=== PATIENT | female | born 1955 | race Caucasian/White ===

== ENCOUNTER 2017-07-22 18:30 | Inpatient (IN) | payer BC, OTHER ==
[~2017-07-22] VITALS: Ht 170.2 cm; Wt 123.8 kg
[~2017-07-22 18:30] MED LIST: ASPIRIN81 M2 PO; BENICAR20 MG PO; CLINDAMYCIN HC300 MG PO; CYMBALTA60 MG PO; FENOFIBRATE160 M1 PO; HUMULIN N100 UNIT/1 SC; LANTUS (UNITS)1 UNIT IV; METFORMIN HCL1000 MG PO; METFORMIN HCL500 MG PO; NOVOLIN N100 UNITS/ SC; NOVOLIN,HU100 UNITS1 SC; SIMVASTATIN40 M1 PO; SIMVASTATIN40 MG PO
[2017-07-22 20:03] LABS: BASOPHIL (%) 0.3 % (0-1); BASOPHIL COUNT 0.1 K/uL (0-0.1); EOSINOPHIL (%) 0 % (0-5); HEMATOCRIT 37.6 % (36.0-46.0); HEMOGLOBIN 12.1 G/DL (11.9-15.5); IMMATURE GRANULOCYTE (%) 2.2 % (0.0-0.7); LYMPHOCYTE (%) 2.7 % (15-42); LYMPHOCYTE COUNT 0.4 K/uL (1.0-2.8); MCH 27.9 PG (29.0-34.0); MCHC 32.2 G/DL (30.0-36.0); MCV 86.8 FL (83-99); MONOCYTE (%) 6.4 % (3-12); NEUTROPHIL (%) 88.4 % (45-76); NEUTROPHIL COUNT 13.7 K/uL (1.8-6.4); PLATELET COUNT 173 K/uL (156-360); RBC DIS.WIDTH-CV 13.2 % (11.8-14.6); RBC DIS.WIDTH-SD 42.1 % (39-53); RED BLOOD COUNT 4.33 M/uL (3.80-5.20); WHITE BLOOD COUNT 15.6 K/uL (4.1-10.2)
[2017-07-22 20:07] LABS: ALBUMIN 3.7 g/dL (3.2-4.8); CHLORIDE 92 mEq/L (99-109); POTASSIUM 4.7 mEq/L (3.7-5.4)
[2017-07-22 20:08] LABS: SODIUM 126 mEq/L (136-147)
[2017-07-22 20:09] LABS: CARBON DIOXIDE (BICARBONATE) 20.9 MEQ/L (20-31); TOTAL PROTEIN 7.6 g/dL (6.4-8.3)
[2017-07-22 20:13] LABS: ALKALINE PHOSPHATASE 78 IU/L (3-129)
[2017-07-22 20:14] LABS: AST (GOT) 30 IU/L (2-34)
[2017-07-22 20:16] LABS: ALT (GPT) 30 IU/L (3-49)
[2017-07-22 20:18] LABS: TROP-I INTERPRETATION NEGATIVE; TROPONIN-I 0.03 ng/mL (0.0-0.30)
[2017-07-22 20:19] LABS: CREATININE 3.3 mg/dL (0.6-1.3); GFR ESTIMATE (CALCULATED) 15 mL/min/; GLUCOSE 527 mg/dL (70-99); UREA NITROGEN (BUN) 60 mg/dL (9-23)
[2017-07-22] MEDS ORDERED: NOVOLIN N100 UNITS/ SC (22:13)
[2017-07-22] MEDS ORDERED: NOVOLOG PE100 UNITS/ SC (22:14)
[2017-07-22 22:15] LABS: CHLORIDE 96 mEq/L (99-109); POTASSIUM 4.4 mEq/L (3.7-5.4); SODIUM 127 mEq/L (136-147)
[2017-07-22] MEDS ORDERED: VITAMIN D31000 UNI2 PO (22:15)
[2017-07-22 22:16] LABS: GLUCOSE 362 mg/dL (70-99)
[2017-07-22 22:20] LABS: CREATININE 3.1 mg/dL (0.6-1.3); GFR ESTIMATE (CALCULATED) 16 mL/min/
[2017-07-22 22:21] LABS: UREA NITROGEN (BUN) 62 mg/dL (9-23)
[2017-07-23 00:53] VITALS: BP 136/63
[2017-07-23 04:21] VITALS: BP 138/82
[2017-07-23 06:55] LABS: APPEARANCE CLOUDY ((CLEAR)); BILIRUBIN NEGATIVE; BLOOD MODERATE; COLOR AMBER ((YELLOW)); GLUCOSE (STRIP) 150; KETONES NEGATIVE; LEUKOCYTES MODERATE; NITRITE NEGATIVE; PROTEIN (STRIP) 100; SPECIFIC GRAVITY 1.013 (1.000-1.030); UROBILINOGEN 0.2 MG/DL (0.2-1.0)
[2017-07-23 07:13] LABS: EPITHELIAL CELLS 1+ /HPF; WHITE BLOOD CELLS TNTC /HPF (0-5)
[2017-07-23 07:14] LABS: BACTERIA 1+ /HPF; MUCUS 1+ /LPF
[2017-07-23 07:24] LABS: BASOPHIL (%) 0.2 % (0-1); EOSINOPHIL (%) 0.2 % (0-5); HEMATOCRIT 33.5 % (36.0-46.0); HEMOGLOBIN 11.2 G/DL (11.9-15.5); IMMATURE GRANULOCYTE (%) 0.6 % (0.0-0.7); LYMPHOCYTE (%) 4.1 % (15-42); LYMPHOCYTE COUNT 0.5 K/uL (1.0-2.8); MCH 29.5 PG (29.0-34.0); MCHC 33.4 G/DL (30.0-36.0); MCV 88.2 FL (83-99); MONOCYTE (%) 8.8 % (3-12); MONOCYTE COUNT 1.1 K/uL (0-0.8); NEUTROPHIL (%) 86.1 % (45-76); RBC DIS.WIDTH-CV 13.7 % (11.8-14.6); WHITE BLOOD COUNT 12.8 K/uL (4.1-10.2)
[2017-07-23 07:27] VITALS: BP 144/65
[2017-07-23 07:54] LABS: CHLORIDE 94 MEQ/L (99-109); CREATININE 2.8 MG/DL (0.6-1.3); GFR ESTIMATE (CALCULATED) 18 mL/min/; GLUCOSE 372 mg/dL (70-99); POTASSIUM 4.7 MEQ/L (3.7-5.4); SODIUM 124 MEQ/L (136-147); UREA NITROGEN (BUN) 64 mg/dL (9-23)
[2017-07-23 08:30] LABS: PLATELET CLUMPS PRESENT - PLATELET COUNT APPEARS ADQ.; PLATELET COUNT 190 K/uL (156-360)
[2017-07-23 14:58] LABS: CHLORIDE 97 MEQ/L (99-109); CREATININE 2.5 MG/DL (0.6-1.3); GFR ESTIMATE (CALCULATED) 21 mL/min/; GLUCOSE 364 mg/dL (70-99); POTASSIUM 3.9 MEQ/L (3.7-5.4); SODIUM 125 MEQ/L (136-147); UREA NITROGEN (BUN) 61 mg/dL (9-23)
[2017-07-23 20:25] VITALS: BP 129/58
[2017-07-23 23:15] VITALS: BP 98/89
[2017-07-24 06:06] LABS: BASOPHIL (%) 0.2 % (0-1); EOSINOPHIL (%) 0.4 % (0-5); HEMATOCRIT 31.5 % (36.0-46.0); HEMOGLOBIN 10.1 G/DL (11.9-15.5); LYMPHOCYTE (%) 4.3 % (15-42); LYMPHOCYTE COUNT 0.4 K/uL (1.0-2.8); MCH 28.4 PG (29.0-34.0); MCHC 32.1 G/DL (30.0-36.0); MCV 88.5 FL (83-99); MONOCYTE (%) 11.1 % (3-12); MONOCYTE COUNT 1.1 K/uL (0-0.8); NEUTROPHIL COUNT 7.8 K/uL (1.8-6.4); PLATELET COUNT 136 K/uL (156-360); RBC DIS.WIDTH-CV 13.9 % (11.8-14.6); RBC DIS.WIDTH-SD 45.4 % (39-53); RED BLOOD COUNT 3.56 M/uL (3.80-5.20); WHITE BLOOD COUNT 9.4 K/uL (4.1-10.2)
[2017-07-24 06:55] LABS: CHLORIDE 102 MEQ/L (99-109); CREATININE 2.4 MG/DL (0.6-1.3); GFR ESTIMATE (CALCULATED) 22 mL/min/; GLUCOSE 321 mg/dL (70-99); POTASSIUM 4.1 MEQ/L (3.7-5.4); SODIUM 131 MEQ/L (136-147); UREA NITROGEN (BUN) 51 mg/dL (9-23)
[2017-07-24 08:43] VITALS: BP 138/60
[2017-07-24 10:41] VITALS: BP 141/64
[2017-07-24 12:16] VITALS: BP 122/58
[2017-07-24 16:16] VITALS: BP 138/71
[2017-07-24 19:38] VITALS: BP 137/63
[2017-07-25] VITALS (7 sets, daily range): BP systolic 110–142; BP diastolic 58–93
[2017-07-25 07:12] LABS: BASOPHIL (%) 0.4 % (0-1); EOSINOPHIL (%) 2.1 % (0-5); EOSINOPHIL COUNT 0.2 K/uL (0-0.3); HEMATOCRIT 30.4 % (36.0-46.0); HEMOGLOBIN 9.6 G/DL (11.9-15.5); IMMATURE GRANULOCYTE (%) 4.3 % (0.0-0.7); LYMPHOCYTE (%) 6.3 % (15-42); LYMPHOCYTE COUNT 0.7 K/uL (1.0-2.8); MCH 28.3 PG (29.0-34.0); MCHC 31.6 G/DL (30.0-36.0); MCV 89.7 FL (83-99); MONOCYTE COUNT 1.2 K/uL (0-0.8); NEUTROPHIL (%) 74.9 % (45-76); NEUTROPHIL COUNT 7.7 K/uL (1.8-6.4); PLATELET COUNT 150 K/uL (156-360); RBC DIS.WIDTH-CV 14.6 % (11.8-14.6); RBC DIS.WIDTH-SD 47.5 % (39-53); RED BLOOD COUNT 3.39 M/uL (3.80-5.20); WHITE BLOOD COUNT 10.3 K/uL (4.1-10.2)
[2017-07-25 07:43] LABS: CHLORIDE 108 MEQ/L (99-109); GFR ESTIMATE (CALCULATED) 32 mL/min/; GLUCOSE 224 mg/dL (70-99); POTASSIUM 4.1 MEQ/L (3.7-5.4); SODIUM 135 MEQ/L (136-147); UREA NITROGEN (BUN) 42 mg/dL (9-23)
[2017-07-25 07:47] LABS: CREATININE 1.7 MG/DL (0.6-1.3)
[2017-07-26 04:00] VITALS: BP 140/65
[2017-07-26 06:55] LABS: HEMATOCRIT 30.8 % (36.0-46.0); HEMOGLOBIN 9.6 G/DL (11.9-15.5); MCH 27.4 PG (29.0-34.0); MCHC 31.2 G/DL (30.0-36.0); RBC DIS.WIDTH-CV 14.8 % (11.8-14.6); RBC DIS.WIDTH-SD 47.8 % (39-53); WHITE BLOOD COUNT 14.1 K/uL (4.1-10.2)
[2017-07-26 06:57] LABS: PLATELET COUNT 204 K/uL (156-360)
[2017-07-26 07:14] LABS: CHLORIDE 111 MEQ/L (99-109); CREATININE 1.6 MG/DL (0.6-1.3); GFR ESTIMATE (CALCULATED) 35 mL/min/; GLUCOSE 157 mg/dL (70-99); POTASSIUM 4.1 MEQ/L (3.7-5.4); SODIUM 140 MEQ/L (136-147); UREA NITROGEN (BUN) 34 mg/dL (9-23)
[2017-07-26] MEDS ORDERED: BACTRIM,SEPT1 TABLET PO (07:27)
[2017-07-26 07:32] LABS: ABS NEUTROPHIL COUNT 11.9; ATYPICAL LYMPHOCYTE 0.9 %; BAND NEUTROPHILS 4.4 % (0-8.0); BASOPHILS 0.9 %; EOSINOPHIL ABS CT 0.2; EOSINOPHILS 1.7 % (0-5.0); LYMPHOCYTES 5.3 % (15.0-45.0); METAMYELOCYTES 0.9 %; MONOCYTES 6.1 % (0-9.0); PLAT.SUFFICIENCY ADEQUATE; SEG.NEUTROPHILS 79.8 % (46.0-76.0)
[2017-07-26 07:43] VITALS: BP 135/63
[2017-07-26 12:03] VITALS: BP 157/73
== END 2017-07-26 12:30 | disposition home or self-care (01) | DRG 872 ==
LOC: EME 18:30 → EDOF 22:47 → 5EAST 22:47 → ENRESERV 22:54 → 5EAST 07-23 00:38 → EDOF 07-23 00:38 → 5EAST 07-26 12:30
PROVIDERS: Emergency Medicine; Family Medicine
DX: A41.51 Sepsis due to Escherichia coli [E. coli] (principal); N39.0 Urinary tract infection, site not specified; J11.1 Influenza due to unidentified influenza virus with other respiratory manifestations; N17.9 Acute kidney failure, unspecified; E11.65 Type 2 diabetes mellitus with hyperglycemia; I10 Essential (primary) hypertension; E11.40 Type 2 diabetes mellitus with diabetic neuropathy, unspecified; E78.5 Hyperlipidemia, unspecified; Z68.41 Body mass index [BMI] 40.0-44.9, adult; R32 Unspecified urinary incontinence; K21.9 Gastro-esophageal reflux disease without esophagitis; E87.1 Hypo-osmolality and hyponatremia; E86.0 Dehydration; Z90.710 Acquired absence of both cervix and uterus; G47.00 Insomnia, unspecified; Z79.4 Long term (current) use of insulin; Z79.82 Long term (current) use of aspirin; Z79.899 Other long term (current) drug therapy; Z90.49 Acquired absence of other specified parts of digestive tract
CPT/HCPCS: 70450; 70486; 71045; 71046; 80048; 80048 91; 80053; 81003; 82010; 82803; 82948; 83605; 84484; 85025; 87040; 87077; 87086; 87186; 87502; 87801; 93005; 94640; 94640 76; 94760; 94799; 99281; 99285; J0692; J0696; J1815; J2405; J7030; S0028